=== PATIENT | female | born 1980 | race Caucasian/White ===

== ENCOUNTER → 2017-07-19 | Outpatient (CLI) | payer BC | LOC: FIMAGING 13:34 | PROVIDERS: ATTEND Obstetrics & Gynecology | DX: O26.892 Other specified pregnancy related conditions, second trimester (principal); Z3A.27 27 weeks gestation of pregnancy; O36.62X0 Maternal care for excessive fetal growth, second trimester, not applicable or unspecified ==

== ENCOUNTER 2018-10-14 04:34 | Emergency (ER) | payer BC ==
[2018-10-14] MEDS ORDERED: NS 1,000 ML IV ONE (05:16)
[2018-10-14 05:34] LABS: PLATELET COUNT 153 10^3/uL (150-400)
--- NOTE | 2018-10-14 05:42 | EDPHY ---
H & P Stated Complaint: headache 2 days ago, body aches, chills Time Seen by Provider: 10/14/18 05:06 HPI/ROS: Chief Complaint: Body aches HPI: 37-year-old presenting with worsening body pain over the last 3 or 4 days. Patient 1st noted some generalized body pain on Sunday. At that they she has stiff neck and headache. The stiff neck is since resolved. She did go for for [employer] run on Sunday but felt increasingly fatigued. She has been having some subjective chills. Some abdominal cramping. Continue to have generalized body pain and aches. No numbness or weakness. No cough. No congestion or runny nose. Did have 1 episode of diarrhea this morning. Has had some abdominal cramping. Has some chills at home but has not documented a fever. Has been taking ibuprofen alternating with acetaminophen with no significant relief. Denies past medical history. Is on oral control, no other medicines. No shortness of breath. No chest pain or palpitations. ROS: 10 systems were reviewed and were negative except those elements noted in the HPI. PMH: Denies Social History: No smoking, occasional alcohol, no recreational drug use Family History: non-contributory Physical Exam: Gen: Awake, Alert, No Distress HEENT: Nose: no rhinorrhea Eyes: PERRLA, EOMI Mouth: Moist mucosa Neck: Supple, no JVD Chest: nontender, lungs clear to auscultation Heart: S1, S2 normal, no murmur Abd: Soft, non-tender, no guarding Back: no CVA tenderness, no midline tenderness Ext: no edema, non-tender Skin: no rash Neuro: CN II-XII intact, Sensation grossly intact, Strength 5/5 in bilateral upper and lower extremities - Personal History LMP (Females 10-55): 1-7 Days Ago Current Tetanus Diphtheria and Acellular Pertussis (TDAP): Yes - Medical/Surgical History Hx Asthma: No Hx Chronic Respiratory Disease: No Hx Diabetes: No Hx Cardiac Disease: No Hx Renal Disease: No Hx Cirrhosis: No Hx Alcoholism: No Hx HIV/AIDS: No Hx Splenectomy or Spleen Trauma: No - Social History Smoking Status: Never smoked Constitutional: Initial Vital Signs Temperature (C) 36.8 C 10/14/18 04:37 Heart Rate 74 10/14/18 04:37 Respiratory Rate 20 10/14/18 04:37 Blood Pressure 132/87 H 10/14/18 04:37 O2 Sat (%) 97 10/14/18 04:37 O2 Delivery Mode Room Air Allergies/Adverse Reactions: No Known Allergies Allergy (Unverified 10/14/18 04:37) Medical Decision Making ED Course/Re-evaluation: 37-year-old woman presenting with myalgias. Laboratory evaluations are normal including a CK, influenza, normal chemistry and CBC is normal. She she has been hydrated. Plan will be to discharge with supportive treatment, follow up with primary care physician return for any concerns. She has no weakness. Symptoms consistent with viral syndrome. - Data Points Laboratory Results: Laboratory Results 10/14/18 05:16 10/14/18 05:16 10/14/18 10/14/18 10/14/18 05:16 05:16 05:16 WBC RBC Hgb Hct MCV MCH MCHC RDW Plt Count MPV Neut % (Auto) Lymph % (Auto) Pershing % (Auto) Eos % (Auto) Baso % (Auto) Nucleat RBC Rel Count Absolute Neuts (auto) Absolute Lymphs (auto) Absolute Monos (auto) Absolute Eos (auto) Absolute Basos (auto) Absolute Nucleated RBC Immature Gran % Immature Gran # Sodium 139 mEq/L mEq/L (135-145) Potassium 3.7 mEq/L mEq/L (3.5-5.2) Chloride 105 mEq/L mEq/L (97-110) Carbon Dioxide 25 mEq/l mEq/l (22-31) Anion Gap 9 mEq/L mEq/L (6-14) BUN 16 mg/dL mg/dL (7-23) Creatinine 0.8 mg/dL mg/dL (0.6-1.0) Estimated GFR > 60 Glucose 95 mg/dL mg/dL (70-100) Calcium 8.4 mg/dL L mg/dL (8.5-10.4) Creatine Kinase 62 IU/L IU/L (0-156) Beta HCG, Qual NEGATIVE Nasal Influenza A PCR NEGATIVE FOR FLU A (NEGATIVE) Nasal Influenza B PCR NEGATIVE FOR FLU B (NEGATIVE) 10/14/18 05:16 WBC 3.85 10^3/uL 10^3/uL (3.80-9.50) RBC 4.56 10^6/uL 10^6/uL (4.18-5.33) Hgb 13.8 g/dL g/dL (12.6-16.3) Hct 40.9 % % (38.0-47.0) MCV 89.7 fL fL (81.5-99.8) MCH 30.3 pg pg (27.9-34.1) MCHC 33.7 g/dL g/dL (32.4-36.7) RDW 12.8 % % (11.5-15.2) Plt Count 153 10^3/uL 10^3/uL (150-400) MPV 10.8 fL fL (8.7-11.7) Neut % (Auto) 70.1 % % (39.3-74.2) Lymph % (Auto) 17.1 % % (15.0-45.0) Pershing % (Auto) 10.9 % % (4.5-13.0) Eos % (Auto) 1.3 % % (0.6-7.6) Baso % (Auto) 0.3 % % (0.3-1.7) Nucleat RBC Rel Count 0.0 % % (0.0-0.2) Absolute Neuts (auto) 2.70 10^3/uL 10^3/uL (1.70-6.50) Absolute Lymphs (auto) 0.66 10^3/uL L 10^3/uL (1.00-3.00) Absolute Monos (auto) 0.42 10^3/uL 10^3/uL (0.30-0.80) Absolute Eos (auto) 0.05 10^3/uL 10^3/uL (0.03-0.40) Absolute Basos (auto) 0.01 10^3/uL L 10^3/uL (0.02-0.10) Absolute Nucleated RBC 0.00 10^3/uL 10^3/uL (0-0.01) Immature Gran % 0.3 % % (0.0-1.1) Immature Gran # 0.01 10^3/uL 10^3/uL (0.00-0.10) Sodium Potassium Chloride Carbon Dioxide Anion Gap BUN Creatinine Estimated GFR Glucose Calcium Creatine Kinase Beta HCG, Qual Nasal Influenza A PCR Nasal Influenza B PCR Medications Given: Discontinued Medications Sodium Chloride (Ns) 1,000 mls @ 0 mls/hr IV ONCE ONE; Wide Open PRN Reason: Protocol Stop: 10/14/18 05:17 Last Admin: 10/14/18 05:19 Dose: 1,000 mls Ketorolac Tromethamine (Toradol) 15 mg IVP EDNOW ONE Stop: 10/14/18 06:02 Last Admin: 10/14/18 06:04 Dose: 15 mg Departure - Departure Disposition: Home, Routine, Self-Care Clinical Impression: Myalgia, Viral syndrome Condition: Good Instructions: Musculoskeletal Pain (ED), Viral Syndrome (ED) Additional Instructions: Alternate acetaminophen (1000 mg) with ibuprofen (400 mg) every 4 hours as needed for fevers, chills, aches or pain. Ms. She drink plenty of fluids. Follow up with primary care physician in 3-4 days if symptoms are not improving. Return to the emergency department for increasing pain, shortness of breath, uncontrolled fevers or chills, nausea, vomiting, or any other concerns. Referrals: Anne Loving MD [Primary Care Provider] - As per Instructions
[2018-10-14 05:49] LABS: CREATINE KINASE 62 IU/L (0-156)
[2018-10-14] MEDS ORDERED: KETOROLAC 15 MG/1 ML SDV IVP ONE (06:01)
[2018-10-14 06:42] VITALS: BP 111/71
== END 2018-10-14 06:42 | disposition home or self-care (01) ==
DX: B34.9 Viral infection, unspecified (principal); M79.10 Myalgia, unspecified site; E86.9 Volume depletion, unspecified
CPT/HCPCS: 96374; J1885

== ENCOUNTER 2018-10-15 16:31 | Emergency (ER) | payer BC ==
[2018-10-15] MEDS ORDERED: NS 1,000 ML IV ONE ×3 (17:05→19:42)
[2018-10-15] MEDS ORDERED: ACETAMINOPHEN 325 MG TAB PO ONE (17:05)
[2018-10-15] MEDS ORDERED: ONDANSETRON 4 MG/2 ML VIAL IVP ONE (17:05)
[2018-10-15 17:15] LABS: PLATELET COUNT 156 10^3/uL (150-400)
--- NOTE | 2018-10-15 17:25 | EDPHY ---
H & P Stated Complaint: EATON, n/v Time Seen by Provider: 10/15/18 16:42 HPI/ROS: CHIEF COMPLAINT: Headache, vomiting HISTORY OF PRESENT ILLNESS: 37-year-old female presents with headache and vomiting. Onset of moderate diffuse myalgias, including neck pain, 4 days ago. She awoke the next morning with a generalized headache and chills. The headache has been persistent and severe. No alleviation with ibuprofen or tylenol. The myalgias have persisted and are associated with swelling of her right knee and left ankle. She was seen in this emergency department yesterday. Evaluation including influenza swab was unremarkable. She followed up with her primary care physician today. Rheumatologic testing pending. Onset of vomiting this afternoon. She decided to come to the emergency department because of persistent moderate headache and repeated vomiting. REVIEW OF SYSTEMS: complete 10 point ROS reviewed and is negative except for the noted elements in the HPI - Personal History Current Tetanus/Diphtheria Vaccine: Yes Current Tetanus Diphtheria and Acellular Pertussis (TDAP): Yes - Medical/Surgical History Hx Asthma: No Hx Chronic Respiratory Disease: No Hx Diabetes: No Hx Cardiac Disease: No Hx Renal Disease: No Hx Cirrhosis: No Hx Alcoholism: No Hx HIV/AIDS: No Hx Splenectomy or Spleen Trauma: No Other PMH: denies - Social History Smoking Status: Never smoked Alcohol Use: Sober Drug Use: None - Physical Exam Exam: General Appearance: Alert, pleasant Eyes: Pupils equal and round, no conjunctival pallor or injection ENT, Mouth: Mucous membranes moist, no pharyngeal erythema Neck: Normal inspection, supple Respiratory: Lungs are clear to auscultation Cardiovascular: Regular rate and rhythm Gastrointestinal: Abdomen is soft and nontender Neurological: Alert, oriented x3, cranial nerves II through XII intact, motor 5 /5, sensory intact to light touch, normal gait Skin: Warm and dry, no rash Extremities: Nontender, no pedal edema Psychiatric: Mood and affect normal Constitutional: Initial Vital Signs Temperature (C) 38 C 10/15/18 16:36 Heart Rate 87 10/15/18 16:36 Respiratory Rate 16 10/15/18 16:36 Blood Pressure 136/64 H 10/15/18 16:36 O2 Sat (%) 96 10/15/18 16:36 O2 Delivery Mode Room Air Allergies/Adverse Reactions: No Known Allergies Allergy (Unverified 10/15/18 16:35) Home Medications: Medication Instructions Recorded Bcp 10/15/18 Medical Decision Making Procedures: Procedure: Lumbar puncture. Indication: headache, fever After verbal informed consent from patient explaining the risks of lumbar puncture including infection, bleeding, spinal headache and neurologic damage, a lumbar puncture was performed with the patient in the sitting position after the patient was prepped and draped in the usual fashion. The L4-5 interspace was anesthetized with 1% lidocaine. Approximately 4 cc of clear fluid was obtained. Opening pressure was not obtained. There were no complications. The procedure was performed by myself. ED Course/Re-evaluation: This patient presents with headache, fever and vomiting. Clinical presentation is concerning for viral meningitis. IV normal saline 1 L, Zofran and Toradol IV given. Patient continues to have a severe headache after Toradol and Tylenol. Lumbar puncture advised. Risks and benefits discussed with the patient and she consents to lumbar puncture. Lumbar puncture consistent with viral meningitis. Dr. Eleanor Vivar was consulted and will follow up with the patient in the office. Results discussed with the patient. She feels much better at this point. Nausea has resolved and she is able to tolerate oral fluids and crackers. The headache is currently mild after Tylenol and Toradol. Warning signs discussed with the patient. She understands that she may be contagious and will minimize contact with family and friends for the next few days until fever resolves. Differential Diagnosis: Differential diagnosis includes pyelonephritis, cholecystitis, influenza, cellulitis, pneumonia, abscess, meningitis. - Data Points Laboratory Results: Laboratory Results 10/15/18 17:00 10/15/18 17:00 10/15/18 10/15/18 10/15/18 19:35 19:35 19:35 WBC RBC Hgb Hct MCV MCH MCHC RDW Plt Count MPV Neut % (Auto) Lymph % (Auto) [place] % (Auto) Eos % (Auto) Baso % (Auto) Nucleat RBC Rel Count Absolute Neuts (auto) Absolute Lymphs (auto) Absolute Monos (auto) Absolute Eos (auto) Absolute Basos (auto) Absolute Nucleated RBC Immature Gran % Immature Gran # Platelet Estimate Sodium Potassium Chloride Carbon Dioxide Anion Gap BUN Creatinine Estimated GFR Glucose Calcium Urine Color Urine Appearance Urine pH Ur Specific [place] Urine Protein Urine Ketones Urine Blood Urine Nitrate Urine Bilirubin Urine Urobilinogen Ur Leukocyte Esterase Urine RBC Urine WBC Ur Epithelial Cells Urine Mucus Urine Glucose Fl Pathologist Review Pending CSF Tube Number 1 4 CSF Appearance CLEAR CLEAR (CLEAR) (CLEAR) CSF Color COLORLESS COLORLESS (COLORLESS) (COLORLESS) CSF Supernatant COLORLESS COLORLESS (COLORLESS) (COLORLESS) CSF WBC 21 /mm3 H /mm3 54 /mm3 H /mm3 (0-5) (0-5) CSF RBC 52 /mm3 H /mm3 0 /mm3 /mm3 (0-0) (0-0) CSF Neutrophils % 9 % H % 19 % H % (0-6) (0-6) CSF Lymphocytes % 77 % % 71 % % (0-100) (0-100) CSF Monos/Macrophage % 14 % % 10 % % (0-45) (0-45) CSF Glucose 51 mg/dL mg/dL (50-75) CSF Total Protein 70 mg/dL H mg/dL (12-60) CSF HSV I&II DNA (PCR) Pending 10/15/18 10/15/18 10/15/18 18:12 17:00 17:00 WBC 4.84 10^3/uL 10^3/uL (3.80-9.50) RBC 4.47 10^6/uL 10^6/uL (4.18-5.33) Hgb 13.6 g/dL g/dL (12.6-16.3) Hct 39.5 % % (38.0-47.0) MCV 88.4 fL fL (81.5-99.8) MCH 30.4 pg pg (27.9-34.1) MCHC 34.4 g/dL g/dL (32.4-36.7) RDW 12.6 % % (11.5-15.2) Plt Count 156 10^3/uL 10^3/uL (150-400) MPV 10.6 fL fL (8.7-11.7) Neut % (Auto) 79.4 % H % (39.3-74.2) Lymph % (Auto) 12.2 % L % (15.0-45.0) [place] % (Auto) 7.6 % % (4.5-13.0) Eos % (Auto) 0.2 % L % (0.6-7.6) Baso % (Auto) 0.4 % % (0.3-1.7) Nucleat RBC Rel Count 0.0 % % (0.0-0.2) Absolute Neuts (auto) 3.84 10^3/uL 10^3/uL (1.70-6.50) Absolute Lymphs (auto) 0.59 10^3/uL L 10^3/uL (1.00-3.00) Absolute Monos (auto) 0.37 10^3/uL 10^3/uL (0.30-0.80) Absolute Eos (auto) 0.01 10^3/uL L 10^3/uL (0.03-0.40) Absolute Basos (auto) 0.02 10^3/uL 10^3/uL (0.02-0.10) Absolute Nucleated RBC 0.00 10^3/uL 10^3/uL (0-0.01) Immature Gran % 0.2 % % (0.0-1.1) Immature Gran # 0.01 10^3/uL 10^3/uL (0.00-0.10) Platelet Estimate Not Reported Sodium 138 mEq/L mEq/L (135-145) Potassium 3.7 mEq/L mEq/L (3.5-5.2) Chloride 105 mEq/L mEq/L (97-110) Carbon Dioxide 24 mEq/l mEq/l (22-31) Anion Gap 9 mEq/L mEq/L (6-14) BUN 10 mg/dL mg/dL (7-23) Creatinine 0.7 mg/dL mg/dL (0.6-1.0) Estimated GFR > 60 Glucose 106 mg/dL H mg/dL (70-100) Calcium 8.6 mg/dL mg/dL (8.5-10.4) Urine Color YELLOW Urine Appearance HAZY Urine pH 7.0 (5.0-7.5) Ur Specific [place] 1.025 (1.002-1.030) Urine Protein 1+ H (NEGATIVE) Urine Ketones 2+ H (NEGATIVE) Urine Blood NEGATIVE (NEGATIVE) Urine Nitrate NEGATIVE (NEGATIVE) Urine Bilirubin NEGATIVE (NEGATIVE) Urine Urobilinogen 2.0 EU H EU (0.2-1.0) Ur Leukocyte Esterase NEGATIVE (NEGATIVE) Urine RBC 1-3 /hpf /hpf (0-3) Urine WBC 3-5 /hpf H /hpf (0-3) Ur Epithelial Cells TRACE /lpf /lpf (NONE-1+) Urine Mucus 1+ /lpf /lpf (NONE-1+) Urine Glucose NEGATIVE (NEGATIVE) Fl Pathologist Review CSF Tube Number CSF Appearance CSF Color CSF Supernatant CSF WBC CSF RBC CSF Neutrophils % CSF Lymphocytes % CSF Monos/Macrophage % CSF Glucose CSF Total Protein CSF HSV I&II DNA (PCR) Microbiology Results: MICROBIOLOGY 10/15/18 19:35 Cerebral Spinal Fluid Gram Stain - Final Medications Given: Discontinued Medications Acetaminophen (Tylenol) 650 mg PO EDNOW ONE Stop: 10/15/18 17:06 Last Admin: 10/15/18 17:13 Dose: 650 mg Sodium Chloride (Ns) 1,000 mls @ 0 mls/hr IV EDNOW ONE; Wide Open PRN Reason: Protocol Stop: 10/15/18 17:06 Last Admin: 10/15/18 17:13 Dose: 1,000 mls Sodium Chloride (Ns) 1,000 mls @ 0 mls/hr IV ONCE ONE PRN Reason: Wide Open Stop: 10/15/18 18:03 Last Admin: 10/15/18 18:04 Dose: 1,000 mls Sodium Chloride (Ns) 1,000 mls @ 0 mls/hr IV ONCE ONE PRN Reason: Wide Open Stop: 10/15/18 19:43 Last Admin: 10/15/18 19:43 Dose: 1,000 mls Ketorolac Tromethamine (Toradol) 30 mg IVP EDNOW ONE Stop: 10/15/18 17:45 Last Admin: 10/15/18 18:05 Dose: 30 mg Ondansetron HCl (Zofran) 4 mg IVP EDNOW ONE Stop: 10/15/18 17:06 Last Admin: 10/15/18 17:13 Dose: 4 mg Departure - Departure Disposition: Home, Routine, Self-Care Clinical Impression: Viral meningitis Condition: Good Instructions: Viral Meningitis (ED) Additional Instructions: Ibuprofen 600 mg 3 times daily while the pain persists. Take Zofran 4 mg under the tongue every 6 hr as needed for nausea. Take Loving 1 tablet under the tongue every 4 hours as needed for headache. Referrals: Anne Loving MD [Primary Care Provider] - As per Instructions Eleanor Vivar MD [Medical Doctor] - As per Instructions (Call to make an appointment.)
[2018-10-15] MEDS ORDERED: KETOROLAC 15 MG/1 ML SDV IVP ONE (17:44)
[2018-10-15] MEDS ORDERED: KETOROLAC 15 MG/1 ML SDV ONE (18:00)
[2018-10-15] MEDS ORDERED: ONDANSETRON 4MG PREPACK#2 BTL TAKEHOME ONE (21:34)
[2018-10-15] MEDS ORDERED: HYDROCOD/APAP 5/325 PREPACK#6 BTL TAKEHOME ONE (21:34)
[2018-10-15 21:50] VITALS: BP 112/73
== END 2018-10-15 21:50 | disposition home or self-care (01) ==
PROC: 009U3ZX Drainage of Spinal Canal, Percutaneous Approach, Diagnostic (ICD-10-PCS; principal; 2018-10-15)
DX: R51 Headache (principal); A87.9 Viral meningitis, unspecified; E86.9 Volume depletion, unspecified
CPT/HCPCS: 87798-90; 96374; J1885; J2405

== ENCOUNTER 2018-10-19 11:04 | Inpatient (IN) | payer BC ==
[2018-10-19] MEDS ORDERED: HYDROmorphONE/DILAUDID 2 MG/ML INJ IVP ONE (11:16)
[2018-10-19] MEDS ORDERED: ONDANSETRON 4 MG/2 ML VIAL IVP ONE (11:16)
[2018-10-19] MEDS ORDERED: KETOROLAC 30 MG/1 ML SDV IVP ONE (11:16)
--- NOTE | 2018-10-19 11:20 | EDPHY ---
H & P Stated Complaint: seen sun/ viral menigitis house wants admission for pain management Time Seen by Provider: 10/19/18 11:15 HPI/ROS: CHIEF COMPLAINT: Severe headache, viral meningitis HISTORY OF PRESENT ILLNESS: 37-year-old female presents with a persistent severe headache after recent diagnosis of viral meningitis. She was seen in this emergency department by me 4 days ago and diagnosed with viral meningitis. Over the past 4 days, she has had a severe headache, unrelieved with ibuprofen and Keller at home. The headache is 4/10 if she is lying supine, but increases to 7/10 with any activity. Associated with photophobia and moderate to severe myalgias and arthralgias. She also has a numb feeling on the left side of her torso that wraps around to the back. Referred to Dr. Vivar and has consulted with Dr. Vivar over the phone in the past few days. She was seen by her primary care physician just prior to arrival, who sent her to the emergency department for admission. REVIEW OF SYSTEMS: complete 10 point ROS reviewed and is negative except for the noted elements in the HPI - Personal History LMP (Females 10-55): 1-7 Days Ago Current Tetanus Diphtheria and Acellular Pertussis (TDAP): Yes - Medical/Surgical History Hx Asthma: No Hx Chronic Respiratory Disease: No Hx Diabetes: No Hx Cardiac Disease: No Hx Renal Disease: No Hx Cirrhosis: No Hx Alcoholism: No Hx HIV/AIDS: No Hx Splenectomy or Spleen Trauma: No Other PMH: viral meningitis - Social History Smoking Status: Never smoked - Physical Exam Exam: General Appearance: Alert, pleasant, appears uncomfortable Eyes: Pupils equal and round, no conjunctival pallor ENT, Mouth: Mucous membranes moist Neck: Normal inspection Respiratory: Lungs are clear to auscultation anteriorly Cardiovascular: Regular rate and rhythm Gastrointestinal: Abdomen is soft and nontender Neurological: A&O, nonfocal, normal gait Skin: Warm and dry, no rash on torso/back Extremities: Normal inspection Psychiatric: Mood and affect normal Constitutional: Initial Vital Signs Temperature (C) 37 C 10/19/18 11:10 Heart Rate 62 10/19/18 11:10 Respiratory Rate 18 10/19/18 11:10 Blood Pressure 122/85 H 10/19/18 11:10 O2 Sat (%) 98 10/19/18 11:10 O2 Delivery Mode Room Air O2 (L/minute) 2 Allergies/Adverse Reactions: No Known Allergies Allergy (Verified 10/19/18 11:10) Home Medications: Medication Instructions Recorded Hydrocodone/APAP 5/325 [Keller 1 - 2 tab PO Q4H PRN #10 tab 10/15/18 5/325 (*)] Ondansetron Odt [Zofran Odt 4 mg 4 mg PO Q4 PRN #10 tab 10/15/18 (*)] Norgestimate-Ethinyl Estradiol 1 tab PO DAILY 10/19/18 [Ukc-Ve-Angaen Tablet] SUMAtriptan [Imitrex 25 MG (*)] 25 mg PO Q2H PRN 10/19/18 Acetaminophen [Tylenol 325mg (*)] 650 mg PO Q4HRS PRN tab 10/21/18 Medical Decision Making - Diagnostics Imaging Results: Imaging Impressions Lumbar Puncture 10/21/18 11:27 Impression: Technically successful blood patch at L3-L4. ED Course/Re-evaluation: This patient presents with known viral meningitis, with persistent severe headache and myalgias/arthralgias. Unrelieved with home prescriptions. Dilaudid and Zofran IV given for pain control with some relief. Will admit for pain management. The hospitalist service was consulted for admission. Differential Diagnosis: Headache including but not limited to subarachnoid hemorrhage, migraine headache , tension headache and infectious causes such as meningitis, pharyngitis and sinusitis. - Data Points Laboratory Results: Laboratory Results 10/20/18 05:15 10/20/18 05:15 Medications Given: Acetaminophen (Tylenol) 650 mg PO Q4HRS PRN PRN Reason: Pain, Mild/Fever, Can Take PO Stop: 04/17/19 14:23 Last Admin: 10/20/18 23:25 Dose: 650 mg Hydromorphone HCl (Dilaudid) 0.5 - 1 mg IVP Q2HRS PRN PRN Reason: Pain, Severe Stop: 10/29/18 14:23 Last Admin: 10/21/18 01:00 Dose: 0.5 mg Sodium Chloride (Ns) 1,000 mls @ 75 mls/hr IV CONT YA Stop: 04/17/19 14:29 Last Admin: 10/20/18 05:06 Dose: 1,000 mls Ketorolac Tromethamine (Toradol) 15 mg IVP Q6HRS PRN PRN Reason: headache Stop: 10/24/18 17:59 Last Admin: 10/20/18 23:25 Dose: 15 mg Lorazepam (Ativan) 0.5 - 1 mg PO Q4HRS PRN PRN Reason: Anxiety, Able to Take PO Stop: 04/18/19 00:25 Last Admin: 10/20/18 05:04 Dose: 0.5 mg Miscellaneous Medication (Norgestimate-Ethinyl Estradiol [Dbd-Hh-Ryewbo Tablet] ) 1 tab PO DAILY YA Stop: 04/18/19 08:59 Last Admin: 10/21/18 09:38 Dose: Not Given Ondansetron HCl (Zofran) 4 mg IVP Q4HRS PRN PRN Reason: Nausea/Vomiting, Can't Take PO Stop: 04/17/19 14:22 Last Admin: 10/21/18 01:00 Dose: 4 mg Ondansetron HCl (Zofran Odt) 4 mg PO Q4HRS PRN PRN Reason: Nausea/Vomiting, Use 1st Stop: 04/17/19 14:22 Last Admin: 10/20/18 05:05 Dose: 4 mg Sumatriptan Succinate (Imitrex) 25 mg PO Q2H PRN PRN Reason: migraine Stop: 04/17/19 14:24 Last Admin: 10/19/18 19:47 Dose: 25 mg Discontinued Medications Hydromorphone HCl (Dilaudid) 0.5 mg IVP EDNOW ONE Stop: 10/19/18 11:17 Last Admin: 10/19/18 11:41 Dose: 0.5 mg Sodium Chloride (Ns) 1,000 mls @ 3,000 mls/hr IV ONCE ONE Stop: 10/19/18 14:59 Last Admin: 10/19/18 15:09 Dose: 1,000 mls Ketorolac Tromethamine (Toradol) 30 mg IVP EDNOW ONE Stop: 10/19/18 11:17 Last Admin: 10/19/18 11:41 Dose: 30 mg Ondansetron HCl (Zofran) 4 mg IVP EDNOW ONE Stop: 10/19/18 11:17 Last Admin: 10/19/18 11:41 Dose: 4 mg Departure - Departure Disposition: Home, Routine, Self-Care Clinical Impression: Viral meningitis Condition: Fair
[2018-10-19 11:47] LABS: PLATELET COUNT 230 10^3/uL (150-400)
[2018-10-19] MEDS ORDERED: ONDANSETRON DISINTEGRATING 4 MG TAB PO PRN (14:23)
[2018-10-19] MEDS ORDERED: oxyCODONE IR 5 MG TAB PO PRN (14:24)
[2018-10-19] MEDS ORDERED: HYDROCODONE/APAP 5/325 TAB PO PRN (14:24)
[2018-10-19] MEDS ORDERED: HYDROmorphONE/DILAUDID 1 MG/ML INJ IVP PRN (14:24)
[2018-10-19] MEDS ORDERED: SUMAtriptan 25 MG TAB PO PRN (14:25)
[2018-10-19] MEDS ORDERED: NS 1,000 ML IV ONE (14:40)
[2018-10-19] MEDS ORDERED: PROMETHAZINE HCL 25 MG/ML INJ IVP PRN (14:40)
--- NOTE | 2018-10-19 15:19 | GHP ---
DATE OF ADMISSION: 10/19/2018 CHIEF COMPLAINT: Headache/viral meningitis. HISTORY OF PRESENT ILLNESS: This is a 37-year-old, otherwise healthy, female who presents for the 3r d time in a week to the ED with a chief complaint of a headache. This started about 8 days ago with headache, neck stiffness and back pain. It waxed and waned a little bit. She had an initial present ation to the ED where she was sent home with ibuprofen with the diagnosis of a migraine. She then sa w her PCP who essentially gave her the same diagnosis. Symptoms got worse. One week ago she present ed to the ED for a 2nd time. At that point, she had a lumbar puncture which, in the 4th tube, showed 54 whites with 71% lymphocytosis, glucose was 51 and total protein was 70. Her Gram stain was negat regi and cultures have been negative as well. Her CSF HSV has also been negative. She had additional ly complained of some joint swelling which has significantly resolved. Today she has some new left t orso sensory change. She had a negative RF as well as a negative LISSA screen in the last week. Today she complains of ongoing headache, nausea, 1 episode of vomiting 2 days ago with additional vomiting before that. She feels very weak. She has some mild photophobia today which is better. PAST MEDICAL/SURGICAL HISTORY: None. MEDICATIONS: Please see medication reconciliation. ALLERGIES: No known drug allergies. 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 She occasionally drinks. She does not smoke. FAMILY HISTORY: Father has rheumatoid arthritis. REVIEW OF SYSTEMS: A 10-point review of systems is conducted and is negative except per HPI. PHYSICAL EXAMINATION: VITAL SIGNS: Blood pressure 115/67, heart rate 57, respiration rate 16, satur ating 95% on room air. Temperature 36.9. GENERAL: The patient is a pleasant female, appears somewh at uncomfortable lying in bed with the lights off. HEENT: Shows her to be normocephalic, atraumatic . CARDIOVASCULAR: Regular rate and rhythm. No murmurs, rubs, or gallops. PULMONARY: Lungs clear to auscultation bilaterally. ABDOMEN: Soft, nontender, and nondistended. SKIN: Shows no rash. : Exam shows is no Jay. NEUROLOGIC: Exam shows her to be alert and oriented x3. Cranial nerves 2-12 are intact. She has mild sensory disturbance in her left torso in approximately the T7-T8 distr ibution. She also complains about this now slightly on the right side in the same distribution. Oth erwise motor and sensory to light touch are intact in the upper and lower extremities. RHEUMATOLOGIC : Exam shows her to have no significant upper extremity edema. She does have some mild left knee ed caleb with a small effusion as well as some left malleolar edema. LABS: Basic metabolic panel is normal. Her white count is 3.6. Urinalysis was negative. CSF as ab ove. Enterovirus is also negative from her CSF. DATA: 1. Discussed with Dr. Clark. 2. I reviewed her chart including notes by Dr. Ro. IMPRESSION AND PLAN: 1. Viral meningitis: Treatment at this point is supportive. I provided her IV narcotics with which she has had some relief from in the ED, oral narcotics, and IV Toradol. Nothing concerning in her c erebrospinal fluid at this point. 2. Left torso numbness: Not really typical with viral meningitis. I do not think we need an MRI he r brain at this point or her spine. However if this does not resolve with supportive care would cons ider further workup. 3. Dehydration: She has eaten very little over the last week, this certainly may be playing a role in her ongoing headache and symptoms. Given her antiemetics for her nausea and IV fluids for her deh ydration. 4. Arthritis: Her LISSA and rheumatoid factor are negative. This may be associated with a viral meni ngitis. We will just continue to monitor for now. BILLING: Using IV narcotics is a high risk in this patient. /[id number]/MODL
[2018-10-19] MEDS: ONDANSETRON 4 MG/2 ML VIAL IVP PRN ×2 (15:41→23:48)
[2018-10-19] MEDS: NS 1,000 ML IV SCH (16:07)
[2018-10-19] MEDS: KETOROLAC 15 MG/1 ML SDV IVP PRN ×2 (17:42→23:48)
[2018-10-20] MEDS: LORazepam 0.5 MG TAB PO PRN ×2 (00:39→05:04)
[2018-10-20] MEDS: NS 1,000 ML IV SCH (05:06)
[2018-10-20 05:52] LABS: PLATELET COUNT 221 10^3/uL (150-400)
[2018-10-20] MEDS: KETOROLAC 15 MG/1 ML SDV IVP PRN ×2 (06:12→23:25)
[2018-10-20] MEDS ORDERED: IOPAMIDOL (ISOVUE 370) 100 ML BTL IV ONE (10:25)
--- NOTE | 2018-10-20 11:55 | HOSPPROG ---
Hospitalist Progress Note Assessment/Plan: 37 yo F with recent dx of viral meningitis presenting with prolonged positional EATON, n/v, trunk numbness # viral meningitis: with cultures as well as viral studies including HSV, VZV and enterococcus negative, patient with prolonged EATON leading to hospitalization as next # EATON:remains severe and has been present x 8 days with LP performed 5 days ago. EATON is frontal and much worse with sitting up, given lack of resolution and continued n/v and slight trunk numbness head ct and CTA performed which were negative for any signs of cva/venous thrombosis/aneurysm/mass. At this point query post LP headache and will get blood patch placed. Plan for patient to remain in house overnight, if EATON not improved in the am would consult neurology # joint swelling: was present initial when her viral sxs began and has since resolved, LISSA/RF negativ # leukopenia: mild and likely related to viral infection # IP status, will require > 48 hours stay given ongoing incapacitating headache Patient new to my care. Old records reviewed and summarized as above. Further hx obtained from patients mother present at bedside. Care plan reviewed with radiology including ordering of imaging studies. Subjective: no significant overnight events, patient with ongoing severe frontal headache much worse with sitting up or standing, no other new sxs Objective: Vital Signs Temp Pulse Resp BP Pulse Ox 36.8 C 67 16 118/69 96 10/20/18 08:00 10/20/18 08:00 10/20/18 08:00 10/20/18 08:00 10/20/18 08:00 Laboratory Results 10/20/18 05:15 10/20/18 05:15 10/19/18 10/20/18 10/21/18 05:59 05:59 05:59 Intake Total 2200 Balance 2200 awake alert anicteric eomi rrr no mrg cta b soft nt nd no cce cn intact - Time Spent With Patient Time Spent with Patient: greater than 35 minutes Time Spent with Patient: Greater than 35 minutes spent on this patients care, greater than 50% of time spent counseling, educating, and coordinating care regarding the above mentioned plan. ICD10 Worksheet Patient Problems: Problems Problem Status Onset Viral meningitis Acute Labor established Acute
[2018-10-20] MEDS ORDERED: IOPAMIDOL (ISOVUE-M 300) 15 ML VIAL ONE (14:04)
[2018-10-20] MEDS ORDERED: LIDOCAINE 1% 300 MG/30 ML SDV ONE (14:04)
[2018-10-20] MEDS: ACETAMINOPHEN 325 MG TAB PO PRN ×2 (16:37→23:25)
[2018-10-20] MEDS: NORGESTIMATE ETHINYL ESTRADIOL PO SCH (16:44)
[2018-10-21] MEDS: ONDANSETRON 4 MG/2 ML VIAL IVP PRN (01:00)
[2018-10-21] MEDS: NORGESTIMATE ETHINYL ESTRADIOL PO SCH (09:38)
--- NOTE | 2018-10-21 11:34 | HOSPPROG ---
Hospitalist Progress Note Assessment/Plan: 37 yo F with recent dx of viral meningitis presenting with prolonged positional EATON, n/v, trunk numbness. First encounter, chart reviewed. # viral meningitis: -with cultures as well as viral studies including HSV, VZV and enterococcus negative -patient with prolonged EATON leading to hospitalization # EATON: -remains severe and has been present x 8 days with LP performed 5 days ago -EATON is frontal and much worse with sitting up -received blood patch, got better now worse again -will get another blood patch -head ct and CTA performed which were negative for any signs of cva/venous thrombosis/aneurysm/mass -At this point query post LP headache -neurology consult, D/W Dr Ramsey # joint swelling: -was present initial when her viral sxs began and has since resolved, LISSA/RF negative # leukopenia: -mild and likely related to viral infection # IP status, will require > 48 hours stay given ongoing incapacitating headache Subjective: Still feeling terrible. Headache, nausea. [place] well last night now ill again. Objective: Vital Signs Temp Pulse Resp BP Pulse Ox 36.3 C 62 16 119/71 96 10/21/18 07:20 10/21/18 07:20 10/21/18 07:20 10/21/18 07:20 10/21/18 07:20 Laboratory Results 10/20/18 05:15 10/20/18 05:15 10/20/18 10/21/18 10/22/18 05:59 05:59 05:59 Intake Total 2200 Balance 2200 - Physical Exam Constitutional: appears nourished, uncomfortable, No obese Eyes: PERRL, anicteric sclera, EOMI Ears, Nose, Mouth, Throat: moist mucous membranes, hearing normal, ears appear normal Cardiovascular: regular rate and rhythym, No JVD, No tachycardia, No edema Respiratory: no respiratory distress, no rales or rhonchi, reduced air movement Gastrointestinal: normoactive bowel sounds, No tenderness, No ascites Skin: warm, normal color, No mottled Musculoskeletal: normal joint ROM, no joint effusions, generalized weakness Neurologic: AAOx3 Psychiatric: not anxious, not encephalopathic, thought process linear ICD10 Worksheet Patient Problems: Problems Problem Status Onset Viral meningitis Acute Labor established Acute
--- NOTE | 2018-10-21 11:43 | NEUROPROG ---
Assessment: Patient assessed and has likely combination of pain from post LP and residual meningitis. Agree with second blood patch. Discussed with Maida Lucas and will remain available for further questions. More formal consult not being done at this point. Objective: Vital Signs Temp Pulse Resp BP Pulse Ox 36.3 C 62 16 119/71 96 10/21/18 07:20 10/21/18 07:20 10/21/18 07:20 10/21/18 07:20 10/21/18 07:20 Laboratory Results 10/20/18 05:15 10/20/18 05:15 10/20/18 10/21/18 10/22/18 05:59 05:59 05:59 Intake Total 2200 Balance 2200 Allergies/Adverse Reactions: No Known Allergies Allergy (Verified 10/19/18 11:10)
[2018-10-21] MEDS ORDERED: IOPAMIDOL (ISOVUE-M 300) 15 ML VIAL ONE (13:14)
--- NOTE | 2018-10-21 14:22 | ASMTCMCOM ---
CM Note CM Note Notes: Reviewed chart, pt admitted for migraine vs meningitis. She returns to the ER for the 3rd time in a week. Pt lives at home with her and child and works as a physical therapist. Anticipate she will dc home when medically stable. CM available for any changes. DC Plan: Independent Date Signed: 10/20/2018 02:41 PM Electronically Signed By:Ginger Moura RN
--- NOTE | 2018-10-21 15:16 | PDMN ---
Medical Necessity Medical necessity: MCG : M185 headaches M221 meningitis suspected or viral A-2 days - pt with persistent severe EATON req blood patch X 2, viral meningitis, trunk numbness, status changed to INPT 10/21 for ongoing med nec care- further monitoring and tx of viral meningitis with severe EATON. IVF, IV Zofran/Phenergan , , IV pain,
[2018-10-22] MEDS: KETOROLAC 15 MG/1 ML SDV IVP PRN (00:38)
[2018-10-22 07:17] VITALS: BP 132/81
[2018-10-22] MEDS: NORGESTIMATE ETHINYL ESTRADIOL PO SCH (08:25)
--- NOTE | 2018-10-22 09:00 | HOSPPROG ---
Hospitalist Progress Note Assessment/Plan: 37 yo F with recent dx of viral meningitis presenting with prolonged positional EATON, n/v, trunk numbness. First encounter, chart reviewed. # viral meningitis: -with cultures as well as viral studies including HSV, VZV and enterococcus negative -patient with prolonged EATON leading to hospitalization # EATON -resolved w 2 blood patches -reviewed her care with Dr Ramsey -had an LP likely causing this # joint swelling: -was present initial when her viral sxs began and has since resolved, LISSA/RF negative # leukopenia: -mild and likely related to viral infection #dc today Subjective: Fariba is feeling much better today. Objective: Vital Signs Temp Pulse Resp BP Pulse Ox 36.6 C 66 16 132/81 H 96 10/22/18 07:15 10/22/18 07:15 10/22/18 07:15 10/22/18 07:15 10/22/18 07:15 10/21/18 10/22/18 10/23/18 05:59 05:59 05:59 Intake Total 500 Balance 500 - Physical Exam Constitutional: no apparent distress, appears nourished, not in pain Eyes: PERRL Ears, Nose, Mouth, Throat: hearing normal Cardiovascular: regular rate and rhythym, bradycardia Respiratory: no respiratory distress Gastrointestinal: normoactive bowel sounds Skin: warm Neurologic: AAOx3 Psychiatric: interacting appropriately ICD10 Worksheet Patient Problems: Problems Problem Status Onset Viral meningitis Acute Labor established Acute
--- NOTE | 2018-10-22 10:36 | GDS ---
DISCHARGE DIAGNOSES: 1. Viral meningitis. 2. Headache secondary to lumbar puncture. 3. Joint swelling. 4. Leukopenia. BRIEF HISTORY: The patient is a 37-year-old female who is overall very healthy. She came to the [facility] room after having a headache. Prior to admission, she had neck stiffness and back pain that w axed and waned. She was sent home with ibuprofen with a diagnosis of migraine. Then she saw her PCP , who essentially gave her the same diagnosis. It got worse. At that point, she had a lumbar punctu re, which showed a viral meningitis. Her CSF HSV was negative. She also had some joint swelling, wh ich had significantly resolved. She was admitted. She received a blood patch that initially helped her symptoms, and then it came back. She received a second blood patch. She is feeling markedly bet ter. She will be discharged home. HOSPITAL COURSE: 1. Viral meningitis. Her cultures, as well as viral studies, including HSV, VZV and Enterococcus ar e negative. Still has some overall fatigue from this. 2. Headache, resolved. 3. Joint swelling. This was present initially when her viral symptoms began, which have since resol ranulfo. Her LISSA and rheumatoid factor are negative. 4. Leukopenia. This is likely secondary to a viral infection. DISCHARGE CONDITION: Stable. Blood pressure is 132/81, heart rate of 66, respiratory rate of 16, O2 sats on room air 96%, temperature 36.6 Celsius. DISCHARGE MEDICATIONS: Please see the EMR. DISCHARGE INSTRUCTIONS: 1. To take it easy for the next week. 2. To stay well hydrated. 3. If she develops fever, chills, or worsening headache pain, to return to the ER. /[id number]/MODL
== END 2018-10-22 09:45 | disposition home or self-care (01) | DRG 103 ==
LOC: F3E 14:15 → OBSVTOIN 10-21 15:08
PROVIDERS: ADMIT Internal Medicine; ATTEND Internal Medicine
PROC: 3E0S3GC Introduction of Other Therapeutic Substance into Epidural Space, Percutaneous Approach (ICD-10-PCS; principal; 2018-10-20)
PROC: 3E0S3GC Introduction of Other Therapeutic Substance into Epidural Space, Percutaneous Approach (ICD-10-PCS; 2018-10-21)
DX: G97.1 Other reaction to spinal and lumbar puncture (principal); A87.9 Viral meningitis, unspecified
CPT/HCPCS: 96374; G0378; J1170; J1885; J2405; Q9967